=== PATIENT | male | born 1990 | race Caucasian/White ===

== ENCOUNTER → 2022-11-30 | Outpatient (CLI) | payer BC ==
[~2022-11-30] MED LIST: COPA1INJ SC; MULT1TAB8 PO
== END ==
LOC: M RAD 16:59
PROVIDERS: ATTEND Psychiatry & Neurology Neurology
DX: G35 Multiple sclerosis (principal); R76.12 Nonspecific reaction to cell mediated immunity measurement of gamma interferon antigen response without active tuberculosis

== ENCOUNTER → 2023-04-06 | Outpatient (CLI) | payer BC | LOC: M PLALAB 08:52 | PROVIDERS: ATTEND Internal Medicine Infectious Disease | DX: R76.12 Nonspecific reaction to cell mediated immunity measurement of gamma interferon antigen response without active tuberculosis (principal) ==